=== PATIENT | male | born 1965 | race African-American/Black ===

== ENCOUNTER 2017-02-10 20:57 | Emergency (ER) | payer BC ==
[~2017-02-10] VITALS: Ht 172.7 cm; Wt 72.7 kg
[~2017-02-10 20:57] MED LIST: ILOTYCIN1 GM RIGHT EYE
[2017-02-10 23:51] VITALS: BP 156/104
== END 2017-02-10 23:52 | disposition home or self-care (01) ==
LOC: EXP 20:57 → EME 20:57 → EXP 23:52
PROC: 0HQ1XZZ Repair Face Skin, External Approach (ICD-10-PCS; principal; 2017-02-10)
DX: S01.81XA Laceration without foreign body of other part of head, initial encounter (principal); Y04.0XXA Assault by unarmed brawl or fight, initial encounter
CPT/HCPCS: 99281; 99283